=== PATIENT | female | born 1970 | race African-American/Black ===

== ENCOUNTER 2017-02-16 05:19 | Day surgery (SDC) | payer BC ==
[2017-02-12 15:16] VITALS: BMI 32.8
[2017-02-16] MEDS ORDERED: IBUPROFEN 800 MG/8 ML IJ IVPB PRN (08:08)
[2017-02-16] MEDS ORDERED: IBUPROFEN 400 MG TABLET (FP) PO PRN (08:08)
--- NOTE | 2017-02-16 08:08 | HP ---
History & Physical Update - History History: No Change - Physical Physical: No Change - Assessment Assessment: No Change - Plan Plan: No Change
[2017-02-16] MEDS ORDERED: PROPOFOL 20 ML ONE (09:46)
[2017-02-16] MEDS ORDERED: MIDAZOLAM HCL 2 MG/2 ML SINGLE DOSE VIAL ONE (09:47)
[2017-02-16] MEDS ORDERED: LIDOCAINE HCL/PF 2% SDV 5ML VIAL ONE (09:47)
[2017-02-16] MEDS ORDERED: ROCURONIUM BROMIDE 50 MG/5 ML VIAL ONE (09:47)
[2017-02-16] MEDS ORDERED: ONDANSETRON 4 MG/2 ML VIAL IVPUSH PRN (09:56)
[2017-02-16] MEDS ORDERED: PROMETHAZINE HCL 25 MG/1 ML VIAL IVPUSH PRN (09:56)
[2017-02-16] MEDS ORDERED: LACTATED RINGERS SOLUTION 1,000 ML IV SCH (10:00)
[2017-02-16] MEDS ORDERED: ceFAZolin SODIUM 1 GM VIAL ONE (10:16)
[2017-02-16] MEDS ORDERED: ceFAZolin SODIUM 1 GM VIAL IVPB ONE (10:17)
[2017-02-16] MEDS ORDERED: DEXAMETHASONE SOD PHOSPHATE 4 MG/1 ML VIAL ONE (10:25)
[2017-02-16] MEDS ORDERED: BUPIVACAINE HCL/PF 0.5% (5MG/ML) 10 ML VIAL ONE (10:52)
[2017-02-16] MEDS ORDERED: GLYCOPYRROLATE 0.2 MG/1 ML VIAL ONE (11:26)
[2017-02-16] MEDS ORDERED: NEOSTIGMINE METHYLSULFATE 0.5 MG/ML - 10 ML MDV ONE (11:26)
--- NOTE | 2017-02-16 13:07 | OP ---
Operative Note - Note: Operative Date: 02/16/17 Pre-Operative Diagnosis: Chronic pelvic pain. endometiral polyp Operation: Laparoscopc lyis of adhesions. bilateral salpingectomy. hysteroscopy. DC Post-Operative Diagnosis: Same as Pre-op Surgeon: Lynne Guerrero Mobile Practice Lead: Rudolph Waggoner Anesthesia: General Estimated Blood Loss (mls): 50 Operative Report Dictated: Yes
[2017-02-16] MEDS ORDERED: IBUPROFEN 800 MG/8 ML IJ IVPB ONE (14:51)
[2017-02-16] MEDS ORDERED: IBUPROFEN 400 MG TABLET (FP) PO ONE ×2 (14:59→15:15)
[2017-02-16 15:27] VITALS: TEMP 97.6
[2017-02-16 17:07] VITALS: BP 135/84; PULSE 82
--- NOTE | 2017-02-17 13:26 | PATH ---
Surgical Pathology Report Patient Name: MEGHNA PATTON [facility]. Rec. #: [id number] /Age/Gender: 1970 (Age: 47) / F Account: [id number] Location: [facility] SURGICAL Taken: 02/16/2017 Received: 02/16/2017 Reported: 02/17/2017 Physicians: Lynne Guerrero M.D. Specimen(s) Received A: RIGHT FALLOPIAN TUBE B: LEFT FALLOPIAN TUBE C: ENDOMETRIAL CURETTINGS Clinical History Pelvic pain, menorrhagia Final Diagnosis A. FALLOPIAN TUBE, RIGHT SALPINGECTOMY: BENIGN FIMBRIATED FALLOPIAN TUBE WITH PARATUBAL CYST. B. FALLOPIAN TUBE, LEFT, SALPINGECTOMY: BENIGN FIMBRIATED FALLOPIAN TUBE WITH INVOLVEMENT BY ENDOMETRIOSIS. C. ENDOMETRIUM CURETTAGE: FRAGMENTS OF BENIGN ENDOCERVICAL AND SQUAMOUS EPITHELIUM. NO DEFINITIVE ENDOMETRIAL TISSUE IDENTIFIED. Electronically Signed Julien Rodríguez M.D. Gross Description A. Received in formalin labeled "right fallopian tube" is a 2.8 cm in length fimbriated fallopian tube. The outer surface is ng-pink with multiple small attached paratubal cysts. Sectioning reveals an unremarkable lumen. Technical Data Analyst sections are submitted in 2 cassettes as follows: 1-fimbria; 2-cross sections of fallopian tube. B. Received in formalin labeled "left fallopian tube" are 5 portions of fragmented fallopian tube ranging from 0.7-2.0 cm in greatest dimension. Probable fimbria are identified. There is a 1.0 cm in greatest dimension paratubal cyst identified. A fallopian tube lumen is identified within some of the portions of tissue. Technical Data Analyst sections are submitted in 2 cassettes as follows: 1-probable fimbria and paratubal cyst; 2-cross sections of fallopian tube. C. Received in formalin labeled "endometrial curettings" is a 0.8 x 0.7 x 0.3 cm aggregate of blood-tinged mucus, possibly containing soft tissue fragments. The formalin is filtered and the specimen is entirely submitted in one cassette. 02/16/201702/16/2017
--- NOTE | 2017-04-27 19:19 | OP ---
DATE OF OPERATION: 02/16/2017 PREOPERATIVE DIAGNOSES: 1. Chronic pelvic pain. 2. Endometrial polyp. OPERATION: Laparoscopic lysis of adhesions, enterolysis, and bilateral salpingectomy, hysteroscopy, and dilatation and curettage. POSTOPERATIVE DIAGNOSES: 1. Chronic pelvic pain. 2. Endometrial polyp. 3. Bowel adhesions. SURGEON: Lynne Guerrero MD SUPERVISOR MENDING: BENITEZ Martinez ANESTHESIA: General. ESTIMATED BLOOD LOSS: 50 mL. DESCRIPTION OF PROCEDURE: Patient was taken to the operating room, placed in dorsal lithotomy position, prepped and draped in usual sterile fashion. A timeout was performed in accordance to hospital regulation. Chahal catheter was inserted into the bladder. Attention was then drawn to the umbilicus where a 5-mm umbilical incision was made. Veress needle was inserted to the cavity. Laparoscope and camera were attached. Visualization revealed noted bowel adhesions. Two lower trocar incisions were made, 5 mm, and trocars were inserted under direct visualization. The EndoShears and LigaSure were attached and grasper. Grasper was then used to pull down the omental and bowel adhesions, and enterolysis was then performed. Lysis of adhesions was done. Dense adhesions were cut. Attention was then drawn to the tubes where EndoShears were removed, and LigaSure was attached. Bilateral coagulation and cutting using LigaSure was done of both tubes and submitted to Pathology. Hemostasis was achieved after all enterolysis had been done and tubes were removed. Trocars were then removed, and CO2 was removed from the abdomen. The incisions were then closed using 4-0 Biosyn suture in subcuticular fashion. Attention was then drawn to the pelvis where a speculum was placed in the vagina. Anterior lip of the cervix grasped with single-tooth tenaculum. Diagnostic hysteroscopy was then inserted and endometrial polyps were seen and suction D&C was then performed. Specimen was submitted to Pathology. Hemostasis was achieved. All instruments were then removed. Estimated blood loss was 50 mL. Patient tolerated the procedure well. Count was correct. The patient was taken to recovery room in stable condition. LYNNE GUERRERO M.D. [id number]
== END 2017-02-16 17:20 | disposition home or self-care (01) ==
LOC: JASU-SURG 05:19
PROVIDERS: ATTEND Obstetrics & Gynecology
PROC: 0UT74ZZ Resection of Bilateral Fallopian Tubes, Percutaneous Endoscopic Approach (ICD-10-PCS; principal; 2017-02-16 09:30)
PROC: 0UDB8ZX Extraction of Endometrium, Via Natural or Artificial Opening Endoscopic, Diagnostic (ICD-10-PCS; 2017-02-16 09:30)
DX: N84.0 Polyp of corpus uteri (principal); K66.0 Peritoneal adhesions (postprocedural) (postinfection)
CPT/HCPCS: 84703; 88305-TC; 94760

== ENCOUNTER 2018-11-15 04:57 | Inpatient (IN) | payer BC ==
[2018-11-09 17:00] VITALS: BMI 33.3
[2018-11-15] MEDS ORDERED: PHENAZOPYRIDINE HCL 100 MG TABLET (FP) PO STA (05:55)
--- NOTE | 2018-11-15 05:57 | HP ---
History & Physical Update - History History: No Change - Physical Physical: No Change - Assessment Assessment: No Change - Plan Plan: No Change (No change in HP)
[2018-11-15] MEDS ORDERED: IBUPROFEN 800 MG/8 ML IJ IVPB PRN (05:59)
[2018-11-15] MEDS ORDERED: ACETAMINOPHEN 325 MG TABLET (FP) PO PRN (05:59)
[2018-11-15] MEDS ORDERED: BISACODYL 5 MG TABLET.DR (FP) PO PRN (05:59)
[2018-11-15] MEDS ORDERED: SIMETHICONE 80 MG TAB.CHEW (FP) PO PRN (05:59)
[2018-11-15] MEDS ORDERED: DOCUSATE SODIUM 100 MG CAPSULE (FP) PO PRN (05:59)
[2018-11-15] MEDS ORDERED: ONDANSETRON 4 MG/2 ML VIAL IVPUSH PRN (05:59)
[2018-11-15] MEDS ORDERED: PHENAZOPYRIDINE HCL 100 MG TABLET (FP) ONE (06:48)
[2018-11-15] MEDS ORDERED: fentaNYL CITRATE 250 MCG/5 ML VIAL ONE (07:31)
[2018-11-15] MEDS ORDERED: MIDAZOLAM HCL 2 MG/2 ML SINGLE DOSE VIAL ONE ×2 (07:32→07:52)
[2018-11-15] MEDS ORDERED: PROPOFOL 20 ML ONE (07:32)
[2018-11-15] MEDS ORDERED: SUCCINYLCHOLINE CHLORIDE 200 MG/10 ML SYRINGE ONE (07:32)
[2018-11-15] MEDS ORDERED: ROPIVACAINE HCL 0.5% 30ML VIAL ONE (07:51)
[2018-11-15] MEDS ORDERED: ceFAZolin SODIUM 1 GM VIAL ONE ×2 (08:02→17:55)
[2018-11-15] MEDS ORDERED: DEXAMETHASONE SOD PHOSPHATE 4 MG/1 ML VIAL ONE (08:02)
[2018-11-15] MEDS ORDERED: ROCURONIUM BROMIDE 50 MG/5 ML SYRINGE ONE ×2 (08:04)
[2018-11-15] MEDS ORDERED: ceFAZolin SODIUM 1 GM VIAL IVPB ONE (08:25)
[2018-11-15] MEDS: CEFAZOLIN 1 GM in DEXTROSE 5%-WATER - 50 ML IVPB SCH ×2 (10:00→18:01)
[2018-11-15] MEDS ORDERED: GLYCOPYRROLATE 0.2 MG/1 ML VIAL ONE (10:34)
--- NOTE | 2018-11-15 11:05 | PN ---
Progress Note (short form) - Note Progress Note: I provided assistance to Dr. Guerrero throughout the entirety of the case.
--- NOTE | 2018-11-15 11:10 | PN ---
Progress Note (short form) - Note Progress Note: I provided assistance to Dr. Guerrero throughout the entirety of the case.
[2018-11-15] MEDS ORDERED: HYDROmorphone *PCA* 10MG/50ML DISP.SYRIN ONE (11:41)
--- NOTE | 2018-11-15 14:26 | OP ---
DATE OF OPERATION: 11/15/2018 PREOPERATIVE DIAGNOSIS: Leiomyomatous uterus, adenomyosis, and pelvic pain and dysmenorrhea. OPERATION: Laparoscopic robotic total hysterectomy and probably salpingectomy. SURGEON: Deshawn Layton MD CHANNELER OUTSOLE: Dl Cam MD ANESTHESIA: General. ANESTHESIOLOGIST: Sandoval Cline MD PROCEDURE: The patient was taken to the operating room, placed in dorsal lithotomy position, prepped and draped in the usual sterile fashion. A timeout was performed in accordance with hospital regulation. Chahal catheter was inserted into the bladder. Speculum was placed in the vagina, anterior lip of the cervix grasped with single-tooth tenaculum. Cervix was then dilated to accommodate the uterine manipulator. A uterine manipulator was then placed. Chahal catheter was then inserted into the bladder. Attention was then drawn to the umbilicus, where an 8-mm umbilical incision was made. Veress was inserted into the cavity. Approximately 3 to 4 L of CO2 was insufflated in the cavity. Veress needle was then removed and an 8-mm trocar was then inserted. Laparoscope and camera was attached. Visualization revealed bladder adhesions to the anterior aspect of the uterus. Ovaries were noted to be normal. Two trocars were placed on the left, one in the upper abdomen on the left, and another trocar was placed 10 cm from the umbilical incision. Trocars were inserted under direct visualization. An AirSeal cannula was inserted in the upper left abdomen. Two trocars were then placed on the right side parallel to the umbilical incision 10 cm apart. Trocars were inserted under direct visualization after scalpel. After positioning the trocars and patient placed in steep Trendelenburg, the da [place] robot was then side docked to the patient's side and the trocars were then placed on the da [place] robot. Instruments then inserted after placement of arms were confirmed. Tenaculum was placed in 4, Endo Kristina in 3, vessel sealer in 1, and camera in 2. Visualization revealed again bladder adhesions to the uterus due to previous section. The tenaculum was then used to elevate the uterus to the right side. The uteroovarian ligament was identified and clamped and cut. Uterine artery was identified, clamped and cut. Vesicouterine reflection was then taken down using sharp technique. Bladder was bluntly dissected out of the operative field. The Endo Kristina was then used into the vagina and the same procedure was repeated on the other side. Uteroovarian ligament was identified, clamped and cut. Uterine artery was identified, clamped and cut using vessel sealer down to the level of the cervix. Ureter was identified and found to be peristaltic on both sides. The vagina was then cut away from the cervix. The uterus and cervix was then removed. Ovaries were noted to be very healthy and normal, so were left in situ. A 2-0 V-Loc suture was introduced and robot was then used to close the vaginal mucosa in a continuous fashion. Hemostasis was achieved. Cautery was then used to cut any bleeding that was noted. Suction irrigation was then done. Needle was then removed from the abdomen. Hemostasis was achieved. All instruments were then removed. The da [place] robot was removed from the patient's sidearm. Incisions were then closed using 3-0 and 4-0 Biosyn suture in a subcuticular fashion. Wound was washed and dressed. Patient tolerated the procedure well. Estimated blood loss was about 50 mL. Ureters were found to be both having peristalsis. DESHAWN LAYTON M.D. [id number]
[2018-11-15] MEDS ORDERED: HYDROmorphone *PCA* 10MG/50ML DISP.SYRIN PCA SCH (17:30)
[2018-11-15] MEDS ORDERED: DEXTROSE 5%-WATER - 50 ML IVPB ONE (17:55)
[2018-11-15] MEDS: LACTATED RINGERS SOLUTION 1,000 ML IV SCH (18:05)
[2018-11-15 20:21] LABS: HEMATOCRIT 34.2 % (32.4-45.2); HEMOGLOBIN 11.1 GM/dL (10.7-15.3); MCH 26.5 pg (25.7-33.7); MCHC 32.3 g/dl (32.0-36.0); MEAN CELL VOLUME 82.2 fl (80-96); MEAN PLT VOLUME 7.7 fl (7.5-11.1); PLATELET COUNT 232 K/MM3 (134-434); RBC 4.17 M/mm3 (3.60-5.2); RDW 16.4 % (11.6-15.6); WHITE BLOOD COUNT 10.5 K/mm3 (4.0-10.0)
[2018-11-15 20:42] LABS: BLOOD UREA NITROGEN 8.6 mg/dL (7-18); CALCIUM 8.2 mg/dL (8.5-10.1); CREATININE 0.8 mg/dL (0.55-1.3); POTASSIUM 4.4 mmol/L (3.5-5.1)
--- NOTE | 2018-11-15 21:09 | OP ---
Operative Note - Note: Operative Date: 11/15/18 Pre-Operative Diagnosis: Adenomyosis. Leiomyomatous Uterus. Pelvic Pain Operation: Laparascopic Robotic Total Hysterectomy Findings: Enlarged 10 cm uterus Post-Operative Diagnosis: Same as Pre-op Surgeon: Lynne Guerrero Lip Cutter: Dl Cam Anesthesia: General Estimated Blood Loss (mls): 50 Operative Report Dictated: Yes
[2018-11-15] MEDS: TOPIRAMATE 25 MG TABLET (FP) PO SCH (21:44)
[2018-11-15] MEDS ORDERED: ATORVASTATIN CA 10 MG TABLET (FP) PO SCH (22:00)
[2018-11-16] MEDS ORDERED: ceFAZolin SODIUM 1 GM VIAL ONE (02:34)
[2018-11-16] MEDS ORDERED: DEXTROSE 5%-WATER - 50 ML IVPB ONE (02:34)
[2018-11-16] MEDS: CEFAZOLIN 1 GM in DEXTROSE 5%-WATER - 50 ML IVPB SCH (02:49)
[2018-11-16] MEDS: LACTATED RINGERS SOLUTION 1,000 ML IV SCH ×2 (03:50→17:31)
[2018-11-16] MEDS ORDERED: oxyCODONE HCL 5 MG TABLET PO PRN ×2 (05:59)
[2018-11-16 07:50] LABS: HEMATOCRIT 31.7 % (32.4-45.2); HEMOGLOBIN 10.3 GM/dL (10.7-15.3); MCH 26.4 pg (25.7-33.7); MCHC 32.3 g/dl (32.0-36.0); MEAN CELL VOLUME 81.7 fl (80-96); MEAN PLT VOLUME 7.8 fl (7.5-11.1); PLATELET COUNT 213 K/MM3 (134-434); RBC 3.88 M/mm3 (3.60-5.2); RDW 16.3 % (11.6-15.6)
[2018-11-16 08:10] LABS: BLOOD UREA NITROGEN 8.8 mg/dL (7-18); CALCIUM 8.3 mg/dL (8.5-10.1); CREATININE 0.8 mg/dL (0.55-1.3); POTASSIUM 3.8 mmol/L (3.5-5.1)
[2018-11-16] MEDS: TOPIRAMATE 25 MG TABLET (FP) PO SCH (09:41)
[2018-11-16] MEDS ORDERED: ENOXAPARIN NA (PORCINE) 40 MG/0.4 ML DISP.SYRIN SQ SCH ×2 (10:00)
--- NOTE | 2018-11-16 14:51 | PATH ---
Surgical Pathology Report Patient Name: MEGHNA PATTON [facility]. Rec. #: [id number] /Age/Gender: 1970 (Age: 48) / F Account: [id number] Location: [address] [place] [address] Taken: 11/15/2018 Received: 11/15/2018 Reported: 11/16/2018 Physicians: Lynne Guerrero M.D. Specimen(s) Received UTERUS, CERVIX AND FALLOPIAN TUBE TISSUE Clinical History Fibroids Final Diagnosis UTERUS, CERVIX, AND FALLOPIAN TUBE TISSUE, HYSTERECTOMY: ONE LEIOMYOMA. ADENOMYOSIS. PROLIFERATIVE ENDOMETRIUM. CERVIX WITH SQUAMOUS METAPLASIA AND FOCAL MILD CERVICITIS. PORTION OF RIGHT FALLOPIAN TUBE WITH NO SIGNIFICANT PATHOLOGIC CHANGE. Electronically Signed Darinel Fortune M.D. Gross Description Received in formalin labeled "uterus and cervix, fallopian tube tissue," is a 184 g uterus with an attached cervix. There is a 1.3 cm in length right fallopian tube stump present. There is no residual fallopian tube tissue identified at the left cornua. The specimen measures 11 cm from superior to inferior, 6.8 cm from left to right and 4.2 cm from anterior to posterior. The serosa is ng-pink and smooth. The cervix measures 4 cm in length and averages 3.3 cm in diameter. The ectocervix is pink-ng, smooth and glistening. The endocervix is unremarkable. The endometrial cavity measures 5 cm in length and 3.5 cm from cornu to cornu. The endometrium is ng red and measures up to 0.3 m in thickness. The myometrium displays a 0.5 cm in greatest dimension intramural nodule. The remaining myometrium is ng-pink, firm and displays nodular architecture, consistent with adenomyosis. The myometrium focally measures up to 3 cm in thickness. Sectioning of the right fallopian tube stump reveals an unremarkable lumen. Code Enforcement Inspector sections are submitted in 8 cassettes as follows: 1-anterior cervix; 2-posterior cervix; 8-3-hfloitmn endomyometrium; 2-6-mvvxiizpl endomyometrium; 7-intramural nodule; 8-right fallopian tube stump. /11/15/2018 [facility]/11/15/2018
[2018-11-16 14:53] VITALS: BP 107/74; PULSE 75; TEMP 98.7
--- NOTE | 2018-11-16 18:29 | DS ---
Physical Exam-PROFESSOR IN FAMILY STUDIES Vital Signs: Vital Signs Temperature 98.7 F 11/16/18 14:52 Pulse Rate 75 11/16/18 14:52 Respiratory Rate 20 11/16/18 14:52 Blood Pressure 107/74 11/16/18 14:52 O2 Sat by Pulse Oximetry (%) 99 11/16/18 09:00 Constitutional: Yes: Well Nourished, No Distress HENT: Yes: WNL Cardiovascular: Yes: WNL Respiratory: Yes: WNL, Regular, CTA Bilaterally Gastrointestinal: Yes: WNL, Normal Bowel Sounds, Soft Breast(s): Yes: WNL Musculoskeletal: Yes: WNL Integumentary: Yes: WNL Wound/Incision: Yes: Clean/Dry, Well Approximated Neurological: Yes: WNL, Alert, Oriented Psychiatric: Yes: WNL, Alert, Oriented Labs: CBC, BMP 11/16/18 06:41 11/16/18 06:41 Discharge Summary Reason For Visit: DUB FIBROIDS Adenomyosis Procedures: Principal: Robotic Total Laparoscopic Hysterectomy. Bilateral Salpingectomy Hospital Course: Unremarkable Condition: Good - Instructions Diet, Activity, Other Instructions: Dr. Lynne Guerrero Advertising Writer discharge instructions Physical activity Resume your normal everyday activity as tolerated no heavy lifting or exercise until seen by your surgeon. You may walk unlimited min of and climb stairs. You may resume driving the car when you feel safe and comfortable behind the wheel. No sexual activity as instructed by Dr. Guerrero. Wound care If you have a bandage, leave it on, and keep dry for 48-72 hours. After that time discard the outer bandage. If they are tapes on the skin under the out of bandage leave them in place. They will peel off in the next 7 to 10 days. Do Not Peel them off. You may shower the day after surgery. If there are tapes present on the skin, you may shower over them. Diet There are no dietary restrictions. Eat healthy, high-fiber foods. Drink 6 to 8 glasses of liquid each day. This will assist in keeping your bowels are regular. Pain management You may take Tylenol or acetaminophen or Ibuprofen (for example, Motrin, Advil etc.) from my pain prescription medication is ordered should be taken as prescribed for moderate to severe pain. Call Dr. Guerrero for any of the following: Severe pain not relieved by medication Fever of 101 or higher Excessive bleeding or drainage on dressing Inability to urinate Call the office at [phone] for an appointment in seven days. Disposition: HOME - Home Medications Comprehensive Discharge Medication List: Ambulatory Orders Simvastatin 20 mg PO HS 02/12/17 Topiramate [Topamax] 25 mg PO BID 11/09/18 Oxycodone HCl/Acetaminophen [Oxycodone-Acetaminophen 5-325] 1 each PO PRN PRN 5 Days #20 tablet MDD 6 11/16/18
== END 2018-11-16 18:47 | disposition home or self-care (01) | DRG 743 ==
LOC: JSAMEDAYSX 04:57 → EDSTATUS 10:00 → J6S 14:47
PROVIDERS: ADMIT Obstetrics & Gynecology; ATTEND Obstetrics & Gynecology
PROC: 0UT94ZZ Resection of Uterus, Percutaneous Endoscopic Approach (ICD-10-PCS; principal; 2018-11-15 08:00)
PROC: 8E0W4CZ Robotic Assisted Procedure of Trunk Region, Percutaneous Endoscopic Approach (ICD-10-PCS; 2018-11-15 08:00)
DX: N80.0 Endometriosis of uterus (principal); D25.9 Leiomyoma of uterus, unspecified; R10.2 Pelvic and perineal pain
CPT/HCPCS: 36415; 80048; 84703; 85027; 86850; 86900; 86901; 88307-TC; 94760